=== PATIENT | female | born 1965 | race Hispanic/Latino ===

== ENCOUNTER 2018-02-02 14:34 | Outpatient (CLI) | payer BC ==
--- NOTE | 2018-02-02 15:57 | MRI ---
RIGHT SHOULDER MRI WITHOUT IV CONTRAST: Date: 02/02/18 HISTORY: 52-year-old female with history of M75.101, tear right rotator cuff. Patient states she has been havi ng stabbing shoulder pain with pain radiating down her shoulder and arm. Osteoarthritis acromioclavic ular joint. TECHNIQUE: Multiplanar, multisequence MRI examination of the right shoulder is performed. FINDINGS: There are some AC joint arthrosis changes and minimal subchondral cystic change. Mild fat stranding i n the subacromial/subdeltoid bursa. There are some subchondral cystic changes involving the inferior anterior glenoid with some minimal adjacent marrow edema, evidence for some intraosseous cysts. There is slight thickening of the supraspinatus and infraspinatus tendons and biceps tendon, evidence for some tendinopathy. The subscapularis tendon is intact. The visualized labrum appears intact. No acute osteochondral defect. IMPRESSION: AC joint degenerative changes, as well as a fairly prominent subchondral cystic focus in the inferior anterior glenoid with some surrounding marrow edema. Minimal rotator cuff tendinopathy, but without evidence for a complete full thickness or retracted tear. POS: C
== END 2018-02-02 14:35 | disposition home or self-care (01) ==
LOC: BICMRI 14:34
PROVIDERS: ATTEND Orthopaedic Surgery Hand Surgery
DX: M75.101 Unspecified rotator cuff tear or rupture of right shoulder, not specified as traumatic (principal); M19.019 Primary osteoarthritis, unspecified shoulder

== ENCOUNTER 2022-07-09 05:31 | Day surgery (SDC) | payer BC ==
[2022-07-07 12:57] VITALS: BMI 32.6
[2022-07-09] MEDS ORDERED: Neomycin-Polymyxin 1 ML AMP ONE (06:18)
[2022-07-09] MEDS ORDERED: Bacitracin Zinc Ointment 30 gm TUBE ONE (06:18)
[2022-07-09] MEDS ORDERED: Bupivacaine PF 0.5% 30 ML VIAL ONE (06:18)
[2022-07-09] MEDS ORDERED: fentaNYL PF 100 MCG/2 ML SYRINGE ONE (06:25)
[2022-07-09] MEDS ORDERED: Midazolam HCl 2 mg/2 ml Vial ONE (06:25)
[2022-07-09] MEDS ORDERED: CEFAZOLIN 2 GM VIAL ONE (06:59)
[2022-07-09] MEDS ORDERED: Sodium Chloride 0.9% 100 ML ONE (06:59)
[2022-07-09] MEDS ORDERED: Dexamethasone 20 MG/5 ML VIAL ONE (07:03)
[2022-07-09] MEDS ORDERED: Ondansetron PF 4 MG/2 ML Vial ONE ×2 (07:03→09:12)
[2022-07-09] MEDS ORDERED: Phenylephrine 10 MG/ML VIAL ONE (07:03)
[2022-07-09] MEDS ORDERED: PROPOFOL 200 MG/20 ML VIAL ONE (07:03)
[2022-07-09] MEDS ORDERED: Lidocaine 1% PF 5 ML VIAL ONE (07:03)
[2022-07-09] MEDS ORDERED: Ketorolac Tromethamine 30 MG/ML VIAL ONE (08:30)
[2022-07-09] MEDS ORDERED: FENTANYL 50 MCG/ML 1 ML VIAL ONE ×2 (08:44→08:51)
[2022-07-09] MEDS ORDERED: hydrALAZINE 20 MG/ML VIAL ONE (08:54)
[2022-07-09] MEDS ORDERED: Promethazine HCl 25 MG/ML VIAL ONE (09:21)
[2022-07-09] MEDS ORDERED: Labetalol HCl 100 MG/20 ML VIAL ONE (09:35)
[2022-07-09] MEDS ORDERED: Labetalol HCl 100 MG/20 ML VIAL SLOW IVP SCH (09:45)
[2022-07-09] MEDS ORDERED: HYDROcodone/Acetaminophen 5/325 mg Tablet ONE (11:40)
== END 2022-07-09 12:00 | disposition home or self-care (01) ==
LOC: SDC 05:31
PROVIDERS: ATTEND Orthopaedic Surgery Hand Surgery
PROC: 01N50ZZ Release Median Nerve, Open Approach (ICD-10-PCS; principal; 2022-07-09)
DX: G56.03 Carpal tunnel syndrome, bilateral upper limbs (principal); I10 Essential (primary) hypertension; E78.5 Hyperlipidemia, unspecified; E11.9 Type 2 diabetes mellitus without complications; Z79.85 Long-term (current) use of injectable non-insulin antidiabetic drugs; Z79.899 Other long term (current) drug therapy
CPT/HCPCS: J0360; J1885; J2250; J2405; J2550; J3010; J3490; S0020

== ENCOUNTER 2023-01-19 14:40 | Outpatient (CLI) | payer BC | END 2023-01-19 14:41 | disposition home or self-care (01) | LOC: BICMRI 14:40 | PROVIDERS: ATTEND Orthopaedic Surgery Hand Surgery | DX: S32.591A Other specified fracture of right pubis, initial encounter for closed fracture (principal); M86.9 Osteomyelitis, unspecified; M25.451 Effusion, right hip; S76.011A Strain of muscle, fascia and tendon of right hip, initial encounter; M67.951 Unspecified disorder of synovium and tendon, right thigh ==

== ENCOUNTER 2023-01-21 14:34 | Outpatient (CLI) | payer BC | END 2023-01-21 14:35 | disposition home or self-care (01) | LOC: BICMRI 14:34 | PROVIDERS: ATTEND Orthopaedic Surgery Hand Surgery | DX: S32.591A Other specified fracture of right pubis, initial encounter for closed fracture (principal); S83.411A Sprain of medial collateral ligament of right knee, initial encounter; S83.241A Other tear of medial meniscus, current injury, right knee, initial encounter; M86.9 Osteomyelitis, unspecified; S83.231A Complex tear of medial meniscus, current injury, right knee, initial encounter; M25.761 Osteophyte, right knee ==